=== PATIENT | male | born 1975 | race Two or more races ===

== ENCOUNTER 2019-06-29 00:32 | Emergency (ER) | payer SELFPAY ==
[~2019-06-29] VITALS: Ht 170.2 cm; Wt 68.0 kg
[2019-06-29 00:46] VITALS: BP 122/77
[2019-06-29] MEDS ORDERED: IV NS 0.9% 1,000 ML BAG IV ONE (01:00)
[2019-06-29] MEDS ORDERED: TETRAcaine 5 ML BOTTLE EACHEYE ONE (01:30)
== END 2019-06-29 01:56 | disposition home or self-care (01) ==
LOC: ER 00:45
DX: H57.11 Ocular pain, right eye (principal); F17.200 Nicotine dependence, unspecified, uncomplicated
CPT/HCPCS: 99281; J7030